=== PATIENT | female | born 1945 | race Two or more races ===

== ENCOUNTER 2020-01-24 07:33 | Outpatient (CLI) | payer MEDICARE, MEDICAID ==
[2020-01-24] MEDS ORDERED: IOHEXOL 300MG/ML 100 ML INFUS..BTL ONE (07:39)
[2020-01-24] MEDS ORDERED: IV NORMAL SALINE 250 ML IV ONE (07:39)
[2020-01-24] MEDS ORDERED: SWABABLE VALVE TRANSFER SET EA MC ONE (07:39)
== END 2020-01-24 23:59 | disposition home or self-care (01) ==
LOC: LAB 07:33
PROVIDERS: ATTEND Surgery
DX: K57.30 Diverticulosis of large intestine without perforation or abscess without bleeding (principal); K42.9 Umbilical hernia without obstruction or gangrene; I51.7 Cardiomegaly; K76.89 Other specified diseases of liver; Z90.49 Acquired absence of other specified parts of digestive tract
CPT/HCPCS: 74178; Q9967; J7050